=== PATIENT | female | born 1990 | race Caucasian/White ===

== ENCOUNTER 2020-12-10 23:28 | Emergency (ER) | payer OTHER ==
[~2020-12-10 23:28] MED LIST: AUGMENTIN 875-1 EACH PO; CLARITIN-D 121 EACH PO; IBUPROFEN800 MG PO
[2020-12-11 00:23] LABS: BASOPHIL 0.6 % (0-2); EOSINOPHIL 2.5 % (0-5); HCT 45.2 % (37.0-47.0); HGB 15.2 g/dl (12.5-16.0); MCH 29.6 pg (25.0-31.0); MCHC 33.6 g/dL (32.0-36.0); MCV 87.9 fL (78.0-100.0); MONOCYTE 10.5 % (0-12); MPV 9.5 fL (6.0-9.5); NRBC 0; PLT 284 K/uL (150-400); RBC 5.14 M/uL (4.20-5.40); RDW 12.9 % (11.5-14.0)
[2020-12-11 00:26] LABS: NEUTROPHIL 48.1 % (41-80)
[2020-12-11 00:39] LABS: BUN/CREAT RATIO (CALC) 9.9 RATIO; CREATININE 0.81 mg/dL (0.51-0.95); POTASSIUM 3.7 mmol/L (3.5-5.1)
[2020-12-11] MEDS ORDERED: CYCLOBENZAPRINE10 MG PO (02:24)
[2020-12-11] MEDS ORDERED: IBUPROFEN800 MG PO (02:24)
[2020-12-11] MEDS ORDERED: MEDROL 4MG DOSEP4 MG PO (02:24)
== END 2020-12-11 02:40 | disposition home or self-care (01) ==
LOC: FER 23:28
PROVIDERS: Emergency Medicine Emergency Medical Services
DX: M54.6 Pain in thoracic spine (principal); F17.210 Nicotine dependence, cigarettes, uncomplicated
CPT/HCPCS: 36415; 71045; 80048; 84484; 85025; 85379; J1100; J1885; J2270; J2405; J2800; J7050

== ENCOUNTER 2021-09-14 15:26 | Emergency (ER) | payer OTHER ==
[~2021-09-14 15:26] MED LIST changes: +CYCLOBENZAPRINE10 MG PO; +MEDROL 4MG DOSEP4 MG PO
[2021-09-14 17:20] LABS: BASOPHIL 0.7 % (0-2); EOSINOPHIL 1.9 % (0-5); HCT 46.8 % (37.0-47.0); HGB 15.6 g/dl (12.5-16.0); LYMPHOCYTE 33.8 % (15-48); MCH 29.2 pg (25.0-31.0); MCHC 33.3 g/dL (32.0-36.0); MCV 87.6 fL (78.0-100.0); MONOCYTE 13.5 % (0-12); MPV 9.1 fL (6.0-9.5); NEUTROPHIL 49.8 % (41-80); NRBC 0; PLT 254 K/uL (150-400); RBC 5.34 M/uL (4.20-5.40); RDW 13.1 % (11.5-14.0); WBC 7.4 K/uL (4.0-10.5)
[2021-09-14 17:28] LABS: BILIRUBIN NEGATIVE (NEGATIVE); BLOOD NEGATIVE Ery/uL (NEGATIVE); CLARITY CLEAR (CLEAR); COLOR YELLOW (YELLOW); GLUCOSE (U) NORMAL (NORMAL); LEUKOCYTES NEGATIVE Leu/uL (NEGATIVE); NITRITE NEGATIVE (NEGATIVE); PROTEIN NEGATIVE (NEGATIVE); SPECIFIC GRAVITY <=1.005 (1.001-1.030); UROBILINOGEN 0.2 mg/dL (0.2-1.0)
[2021-09-14 18:07] LABS: ALBUMIN 3.7 g/dL (3.4-5.0); BILIRUBIN - TOTAL 0.2 mg/dL (0.2-1.0); BUN/CREAT RATIO (CALC) 5.5 RATIO; CREATININE 0.91 mg/dL (0.51-0.95); GLOBULIN (CALCULATION) 4.1 g/dL; TOTAL PROTEIN 7.8 g/dL (6.4-8.2)
[2021-09-14] MEDS ORDERED: CYCLOBENZAPRINE10 MG PO (18:12)
== END 2021-09-14 18:20 | disposition home or self-care (01) ==
LOC: FER 15:26
PROVIDERS: Physician Assistant
DX: M54.6 Pain in thoracic spine (principal); F17.210 Nicotine dependence, cigarettes, uncomplicated
CPT/HCPCS: 36415; 80053; 81003; 85025